=== PATIENT | male | born 1950 | race Caucasian/White ===

== ENCOUNTER 2022-03-25 22:38 | Inpatient (IN) | payer MEDICARE ==
[~2022-03-25] VITALS: Ht 172.7 cm; Wt 90.2 kg
[2022-03-25 23:14] LABS: Base Excess Venous -9.2 mmol/L; Bicarbonate Venous 17.6 mmol/L (24.0-30.0); PCO2 Venous 32.1 mmHg (38-42); pH Blood Venous 7.33 (7.34-7.37)
[2022-03-25 23:25] LABS: Hematocrit 34.9 % (37.0-53.0); Hemoglobin 12.6 g/dL (13.5-17.5); Mean Corpuscular HGB 34.4 pg (26.0-34.0); Mean Corpuscular HGB Conc 36.1 g/dL (31.5-36.5); Mean Corpuscular Volume 95 fL (80-100); Mean Platelet Volume 11.1 fL (9.1-12.4); Platelet Count 192 K/mm3 (150-400); RDW Coefficient Variation 13.2 % (11.7-14.2); RDW Standard Deviation 46.6 fL (35.1-46.3); Red Blood Cell Count 3.66 M/mm3 (4.30-5.90)
[2022-03-25 23:37] LABS: Albumin/Globulin Ratio 0.4 (0.8-1.8); Bilirubin, Total 0.8 mg/dL (0.1-1.0); Bun/Creatinine Ratio 19.9 (12.0-20.0); Calcium, Blood 8.7 mg/dL (8.5-10.1); Creatinine, Blood 1.66 mg/dL (0.60-1.20); Globulin, Blood 4.5 g/dL (2.2-4.0); Potassium, Blood 3.2 mmol/L (3.5-5.5); Total Protein, Blood 6.5 g/dL (6.4-8.2)
[2022-03-25 23:52] LABS: BAND PERCENT MAN 6 % (0-8); BASOPHILS PERCENT MAN 0 % (0-2); EOSINOPHILS PERCENT MAN 0 % (0-6); LYMPHOCYTES ABSOLUTE MAN 0.19 K/mm3 (0.84-5.20); LYMPHOCYTES PERCENT MAN 1 % (21-46); MONOCYTES ABSOLUTE MAN 0.57 K/mm3 (0.16-1.47); MONOCYTES PERCENT MAN 3 % (4-13); NEUTROPHILS ABSOLUTE MAN 18.52 K/mm3 (1.96-9.15); SEG NEUTROPHILS PERCENT MAN 90 % (41-73); TOTAL CELLS COUNTED 100
[2022-03-26 00:50] LABS: Influenza A, PCR NEGATIVE (NEGATIVE); Influenza B, PCR NEGATIVE (NEGATIVE); Resp Syncytial Virus, PCR NEGATIVE (NEGATIVE); SARS-Cov-2 (COVID-19) PCR, MMC NEGATIVE (NEGATIVE)
[2022-03-26 03:38] LABS: BASOPHILS ABSOLUTE AUTO 0.07 K/mm3 (0.00-0.23); BASOPHILS PERCENT AUTO 1 % (0-2); Hemoglobin 12.1 g/dL (13.5-17.5); LYMPHOCYTES ABSOLUTE AUTO 0.33 K/mm3 (0.84-5.20); LYMPHOCYTES PERCENT AUTO 2 % (21-46); MONOCYTES ABSOLUTE AUTO 0.33 K/mm3 (0.16-1.47); MONOCYTES PERCENT AUTO 2 % (4-13); Mean Corpuscular HGB 33.5 pg (26.0-34.0); Mean Corpuscular HGB Conc 35.6 g/dL (31.5-36.5); Mean Corpuscular Volume 94 fL (80-100); Mean Platelet Volume 10.7 fL (9.1-12.4); Platelet Count 176 K/mm3 (150-400); RDW Coefficient Variation 13.2 % (11.7-14.2); RDW Standard Deviation 45.5 fL (35.1-46.3); Red Blood Cell Count 3.61 M/mm3 (4.30-5.90)
[2022-03-26 03:44] LABS: EOSINOPHILS ABSOLUTE AUTO 0.01 K/mm3 (0.00-0.68); EOSINOPHILS PERCENT AUTO 0 % (0-6); IMMATURE GRAN ABSOLUTE AUTO 0.19 K/mm3 (0.00-0.10); IMMATURE GRAN PERCENT AUTO 1 % (0-1); NEUTROPHILS ABSOLUTE AUTO 13.77 K/mm3 (1.96-9.15); NEUTROPHILS PERCENT AUTO 94 % (41-73)
[2022-03-26 04:04] LABS: Albumin, Blood 1.8 g/dL (3.4-5.0); Albumin/Globulin Ratio 0.4 (0.8-1.8); Bilirubin, Total 0.6 mg/dL (0.1-1.0); Bun/Creatinine Ratio 23.8 (12.0-20.0); Calcium, Blood 7.9 mg/dL (8.5-10.1); Creatinine, Blood 1.72 mg/dL (0.60-1.20); Globulin, Blood 4.4 g/dL (2.2-4.0); Potassium, Blood 3.3 mmol/L (3.5-5.5); Total Protein, Blood 6.2 g/dL (6.4-8.2)
--- NOTE | 2022-03-26 06:15 | NUR ---
ARRIVAL TO ICU 7/SHIFT SUMMARY PT ARRIVED AT 0235 VIA ER VANDANA. PT TRANSFERED TO ICU BED, ALERT AND TALKING WITH STAFF. PT SWITCHED FROM BIPAP TO 5L NC. SPO2 GREATER THAN 92%. LUNGS WHEEZY, COARSE W/ CRACKLES IN BASES. AFIB RATE 150'S. CALL TO DR KENNEY REGARDING RATE. ORDERS RECEIVED. AFTER MEDS GIVEN, RATE STILL IN 150'S. CALL MADE AGAIN TO DR KENNEY. ORDER RECEIVED FOR CARDIZEM GTT. PT CURRENTLY ON BIPAP. LR AT 75MLS/HR. CARDIZEM AT 10MG/HR. SBP 110'S. URINE SAMPLE NEEDED, PT DENIES FEELING NEED TO VOID AT THIS TIME, BLADDER SCAN 277.
--- NOTE | 2022-03-26 07:00 | NUR ---
ASSUME CARE: I have assumed care of this patient.
--- NOTE | 2022-03-26 08:37 | NUR ---
PROVIDER UPDATE: Dr Mcclain updated on pt's sinus tachycardia.
--- NOTE | 2022-03-26 09:11 | NUR ---
UPDATE: Message left for provider regarding continued tachycardia.
[2022-03-26 10:19] LABS: Albumin, Blood 1.7 g/dL (3.4-5.0); Anion Gap 16 mmol/L (6-16); Blood Urea Nitrogen 51 mg/dL (8-24); Bun/Creatinine Ratio 27.4 (12.0-20.0); CO2, Blood 17 mmol/L (21-32); Chloride, Blood 92 mmol/L (98-108); Creatinine, Blood 1.86 mg/dL (0.60-1.20); Glomerular Filtration Rate 38 (60-); Glucose, Blood 105 mg/dL (70-99); Magnesium, Blood 3.4 mg/dL (1.6-2.4); Phosphorus, Blood 5.9 mg/dL (2.5-4.9); Potassium, Blood 3.7 mmol/L (3.5-5.5); Sodium, Blood 125 mmol/L (136-145)
--- NOTE | 2022-03-26 10:34 | NUR ---
PROVIDER UPDATE: Dr. Clark notified of troponin, sodium, continued tachycardia and now hypotension after metoprolol. Telephone order for ICU status and cardiology consult.
--- NOTE | 2022-03-26 10:37 | NUR ---
CARDIOLOGY CONSULT: Dr Henry called and notified of new consult. Telephone order for echo.
--- NOTE | 2022-03-26 11:19 | NUR ---
CHRIS AT BEDSIDE.
[2022-03-26 11:54] LABS: Source, Urine Clean Catch
[2022-03-26 12:09] LABS: Appearance, Urine Clear (Clear); Bilirubin, Urine Neg (Neg); Blood, Urine 5+ (Neg); Color, Urine Amber (P-Yellow); Glucose Qualitative, Urine Neg (Neg); Ketones, Urine 1+ (Neg); Leukocyte Esterase, Urine 1+ (Neg); Nitrite, Urine Neg (Neg); Protein, Urine 3+ (Neg); Urobilinogen, Urine NORM (Normal)
[2022-03-26 12:20] LABS: Granular Casts 0-2 /lpf (0); Red Blood Cells, Urine 0-2 /hpf (0-2); Squamous Epithelial Cells Not Seen /hpf (Few)
[2022-03-26 12:21] LABS: Bacteria Mod /hpf
[2022-03-26 12:35] LABS: International Normalized Ratio 1.08; Prothrombin Time Results 11.3 Sec (9.7-11.5)
--- NOTE | 2022-03-26 14:39 | NUR ---
PHONE CALL: Pt's boss, Claus, called per pt's request and notified that he is in the ICU.
--- NOTE | 2022-03-26 14:57 | NUR ---
UPDATE: Message left for Dr Henry regarding hypotension.
--- NOTE | 2022-03-26 15:10 | NUR ---
UPDATE: Dr. Henry updated regarding pt status. Dr. Larson updated on plan.
--- NOTE | 2022-03-26 16:00 | NUR ---
1529 - timout called; Carl, RT, RN x 2, and RT at bedside. 1531 - 2 mg versed pushed 1532 - synchronized cardioversion at 50 J with refractory aflutter in 180's 1535 - 150mg amiodarone pushed, 2mg versed pushed 1537 - 25 mcg fentanyl pushed 1539 - synchronized cardioversion at 200 J with successful conversion into sinus tachycardia
--- NOTE | 2022-03-26 16:43 | NUR ---
UPDATE: Dr Clark updated on pt status. Telephone order for 10mg lasix
--- NOTE | 2022-03-26 16:59 | NUR ---
UPDATE: Dr Mcclain called and notified of bloody BM with clots. She states she will call Cynthia.
[2022-03-26 17:41] LABS: Hematocrit 19.9 % (37.0-53.0); Hemoglobin 7.2 g/dL (13.5-17.5)
--- NOTE | 2022-03-26 18:20 | NUR ---
CC CONSULT: Dr Rivera called and notified of pt status. Telephone order for second unit of PRBC and levophed for MAP <64
--- NOTE | 2022-03-26 19:15 | NUR ---
ASSUMED CARE OF PT @1900. BEDSIDE REPORT. PT ON CPAP 10 AND 40%. A&O X4. FOLLOWS DIRECTIONS. REPOSITIONS SELF IN BED AND MOVING ALL EXTREMETIES INDEPENDENTLY. RR 33, HR 120'S, SBP 80-90'S, MAP 60'S. LEVOPHED INFUSING @2MG/MIN. AMIODARONE 1MG/HR. TKO 10MLS/HR. PICC LINE LEONARDO. 20GA IV R WRIST.
--- NOTE | 2022-03-26 19:30 | NUR ---
SHIFT SUMMARY: NEURO: Pt requiring more frequent orientation after cardioversion procedure. Pt states that he has not slept in five days and has been seeing visual hallucinations. CARDIAC: initially in 2:1 a flutter. Three boluses of 150mg amio given today. One 500ml bolus of NS given. Pt cardioverted successfully into sinus tachycardia in 110's. BP's still hypotensive. PICC started in LUE and Levophed started. RESPIRATORY: pt tolerated 6L NC for a short time today before requiring CPAP 10 at 40%. GI/: minimal UOP. Two large, maroon colored stools after cardioversion. Heparin discontinued and GI consulted. Two units of PRBCs ordered. SKIN: no new breakdown
--- NOTE | 2022-03-26 21:54 | NUR ---
UPDATE CALL TO DR CARSON REGARDING PT. PT TO GO TO CT FOR ANGIO. PT ON LEVOPHED AT 8 MCQ/MIN. FIRST UNIT BLOOD INFUSING. GARCIA CATH WITH LESS THAN 5 ML OUT. PT HAS HAD 4 DARK MAROON STOOLS OF THIS TIME. DR GAGE AND DR CARSON AWARE.
[2022-03-26 22:20] LABS: Base Excess Venous -9.8 mmol/L; Bicarbonate Venous 16.8 mmol/L (24.0-30.0); PCO2 Venous 27.2 mmHg (38-42); pH Blood Venous 7.37 (7.34-7.37)
--- NOTE | 2022-03-26 22:25 | NUR ---
PT TO CT. RT BEDSIDE.
--- NOTE | 2022-03-26 22:50 | NUR ---
PT RETURNED FROM CT
--- NOTE | 2022-03-26 22:58 | NUR ---
BACK FROM CT. UPDATE GIVEN TO DR MOY. CALL TO DR GAGE ABOUT CT COMPLETE, BUT NO REPORT YET. WILL CALL DR GAGE WHEN WE RECEIVE CT REPORT.
--- NOTE | 2022-03-26 23:24 | NUR ---
DR. MOY BEDSIDE TO ASSESS PT. CONTINUE W/PLAN OF CARE. ADD VASOPRESSIN DUE TO LEVO @12 AND MAP OF 66.
--- NOTE | 2022-03-27 01:01 | NUR ---
CALL TO MD CALL TO DR CARSON REGARDING NO URINE OUTPUT SINCE LASIX 80 MG GIVEN. BLADDER SCAN DONE AND WAS 44 ML ALSO REPORTED TO DR CARSON. RECIEVED ORDERS FOR LASIX 160 MG, NO FLUID ORDER RECIEVED. AM LABS ORDERED.
[2022-03-27 02:44] LABS: Source, Urine Foley catheter
[2022-03-27 02:44] LABS: BASOPHILS ABSOLUTE AUTO 0.04 K/mm3 (0.00-0.23); BASOPHILS PERCENT AUTO 0 % (0-2); Hematocrit 20.1 % (37.0-53.0); Hemoglobin 7.5 g/dL (13.5-17.5); LYMPHOCYTES ABSOLUTE AUTO 0.78 K/mm3 (0.84-5.20); LYMPHOCYTES PERCENT AUTO 3 % (21-46); MONOCYTES ABSOLUTE AUTO 0.69 K/mm3 (0.16-1.47); MONOCYTES PERCENT AUTO 3 % (4-13); Mean Corpuscular HGB 33.2 pg (26.0-34.0); Mean Corpuscular HGB Conc 37.3 g/dL (31.5-36.5); Mean Platelet Volume 11.2 fL (9.1-12.4); Platelet Count 179 K/mm3 (150-400); RDW Coefficient Variation 16.7 % (11.7-14.2); RDW Standard Deviation 54.4 fL (35.1-46.3); Red Blood Cell Count 2.26 M/mm3 (4.30-5.90); White Blood Cell Count 24.85 K/mm3 (4.00-11.30)
[2022-03-27 02:46] LABS: Bilirubin, Urine Neg (Neg); Blood, Urine 5+ (Neg); Glucose Qualitative, Urine 1+ (Neg); Ketones, Urine 1+ (Neg); Leukocyte Esterase, Urine 1+ (Neg); Nitrite, Urine Neg (Neg); Protein, Urine 3+ (Neg); Specific Gravity, Urine 1.015 (1.003-1.022); Urobilinogen, Urine NORM (Normal)
[2022-03-27 02:49] LABS: EOSINOPHILS ABSOLUTE AUTO 0.01 K/mm3 (0.00-0.68); EOSINOPHILS PERCENT AUTO 0 % (0-6); IMMATURE GRAN ABSOLUTE AUTO 0.99 K/mm3 (0.00-0.10); IMMATURE GRAN PERCENT AUTO 4 % (0-1); Mean Corpuscular Volume 89 fL (80-100); NEUTROPHILS ABSOLUTE AUTO 22.34 K/mm3 (1.96-9.15); NEUTROPHILS PERCENT AUTO 90 % (41-73)
[2022-03-27 03:00] LABS: International Normalized Ratio 1.19; Prothrombin Time Results 12.4 Sec (9.7-11.5)
[2022-03-27 03:02] LABS: Albumin, Blood 1.3 g/dL (3.4-5.0); Albumin/Globulin Ratio 0.4 (0.8-1.8); Bilirubin, Total 0.5 mg/dL (0.1-1.0); Bun/Creatinine Ratio 25.3 (12.0-20.0); Calcium, Blood 6.8 mg/dL (8.5-10.1); Creatinine, Blood 2.96 mg/dL (0.60-1.20); Magnesium, Blood 2.9 mg/dL (1.6-2.4); Phosphorus, Blood 6.2 mg/dL (2.5-4.9); Potassium, Blood 3.6 mmol/L (3.5-5.5); Total Protein, Blood 4.3 g/dL (6.4-8.2)
[2022-03-27 03:48] LABS: Appearance, Urine Hazy (Clear); Color, Urine Red (P-Yellow); Red Blood Cells, Urine TNTC /hpf (0-2)
[2022-03-27 03:49] LABS: Bacteria Mod /hpf; Squamous Epithelial Cells Mod /hpf (Few)
--- NOTE | 2022-03-27 05:46 | NUR ---
SUMMARY: NEURO/PSYCH/MOBILITY: PT HAS BEEN HAVING CONFUSION OVERNIGHT. VISUAL HALLUCINATIONS. PT IS REDIRECTABLE AND COOPERATIVE. ABLE TO MOVE ALL EXTREMETIES INDEPENDENTLY AND MAKE MINOR ADJUSTMENTS TO BODY POSITION. WEAKNESS EVEN BILATERALLY. PERRL. PT DENIES PAIN OR SOB. TMAX 101.3. TYLENOL GIVEN. RESP: LUNGS REMIAN COARSE THROUGHOUT W/DIM BASES. CPAP OF 10 AND 40%. RR 20-30'S, SPO2 >92%. PT HAS OCCASIONAL LOOSE/WET COUGH. PT TOLERATES O2 5L VIA NC FOR ORAL CARE. CARDIAC: CONTINUOUS CARDIAC MONITORING. LEVOPHED INFUSING, TITRATED DOWN TO 4MCG/MIN AT END OF SHIFT. AMIODARONE 1MG/MIN INFUSING. SR 80-90'S. SBP 90-120. MAP >65. PT DENIES CHEST PAIN. NO EDEMA. PULSES STRONG ON ALL EXTREMETIES. SCD'S IN PLACE. GI: PT HAS HAD MULTIPLE LARGE LOOSE MAROON BOWEL MOVEMENTS THROUGHOUT SHIFT. RECTAL TUBE INSERTED. PT DENIES ABDOMINAL PAIN AND NAUSEA. PT NPO. : TEMP GARCIA PRESENT AND DRAINING TO GRAVITY. PT HAS HAD LESS THAN 50MLS URINE OUTPUT THIS SHIFT. LASIX GIVEN THROUGHOUT SHIFT. SKIN: ASSESSMENT REMAINS UNCHANGED. IV ACCESS: PICC LEONARDO INFUSING. 20GA L WRIST. 20GA R WRIST INFUSING. 18GA RAC SALINE LOCK.
--- NOTE | 2022-03-27 08:10 | NUR ---
ASSUMED CARE REPORT FROM SERA/JESSE RN AT 0700. PT RESTING IN BED. CPAP 10/40% IN PLACE. PLACED ON NC AND TITRATED TO 2L, TOLERATING WELL. O2 SATS 99%. MOIST COUGH. LUNGS COARSE AND DIM THROUGHOUT. SR, RATE 80'S ON MONITOR. LEVO TITRATED OFF. WILL MONITOR FOR MAP>65. PT ALERT, ORIENT TO SELF ONLY. NEEDS FREQUENT REORIENTATION. IRRITABLE c HAVING TO STAY IN BED. FOLLOWS SIMPLE DIRECTIONS. ABD SOFT, NON TENDER. BT X 4. PT DENIES PAIN. RECTAL TUBE IN PLACE. LIQUID MAROON STOOL OUT. GARCIA PATENT, DRAINING TO GRAVITY. CLEAR YELLOW URINE OUT. PICC TO LUE, DISTAL IV REMOVED. WILL CONTINUE TO MONITOR.
[2022-03-27 08:28] LABS: Hematocrit 18.4 % (37.0-53.0); Hemoglobin 6.7 g/dL (13.5-17.5)
--- NOTE | 2022-03-27 09:05 | NUR ---
Echocardiogram completed.
[2022-03-27 11:40] LABS: Vancomycin, Random 19.9 ug/mL
[2022-03-27 13:59] LABS: Hematocrit 21.7 % (37.0-53.0); Hemoglobin 8.1 g/dL (13.5-17.5)
[2022-03-27 14:15] LABS: Albumin, Blood 1.6 g/dL (3.4-5.0); Anion Gap 13 mmol/L (6-16); Blood Urea Nitrogen 76 mg/dL (8-24); Bun/Creatinine Ratio 21.8 (12.0-20.0); CO2, Blood 17 mmol/L (21-32); Calcium, Blood 7.4 mg/dL (8.5-10.1); Chloride, Blood 97 mmol/L (98-108); Creatinine, Blood 3.48 mg/dL (0.60-1.20); Glomerular Filtration Rate 18 (60-); Glucose, Blood 111 mg/dL (70-99); Phosphorus, Blood 7.5 mg/dL (2.5-4.9); Sodium, Blood 127 mmol/L (136-145)
--- NOTE | 2022-03-27 17:31 | NUR ---
03/27/22 [address] NINO; SEE ANESTHESIA RECORDS.
--- NOTE | 2022-03-27 17:46 | NUR ---
Pt's daughter was not aware her dad was in the hospital until this afternoon. Once she was informed of the seriousness of his situtaion, she decided drive down to see him. Pt was cardioverted yesterday, and today remains hypotensive. Pt is a full code; have not had the opportunity discuss code status due to pt's extreme anxeity. Hopeful his daugher's presence will help calm him. Palliative to see him again tomorrow.
--- NOTE | 2022-03-27 17:48 | NUR ---
SHIFT SUMMARY PT NEURO STATUS IMPROVED THIS SHIFT. COOPERATIVE c CARE. ORIENTED TO SELF, PLACE, PRESIDENT. ABLE TO DISCUSS CARE PLAN. OCCASIONAL CONFUSION, REORIENTS EASILY. FOLLOWS DIRECTIONS. LUNGS COARSE, WORSE ON LEFT SIDE. ON RA, O2 SATS >96%. PRODUCTIVE COUGH, SPECIMEN SENT TO LAB. SR, RATE 80'S. BP STABLE. OFF LEVO SINCE THIS AM. ABD ROUND, SOFT, NON TENDER. RECTAL TUBE IN PLACE c JADA RED BLOOD c CLOTS OUT. GARCIA PATENT, 800 ML CLEAR YELLOW URINE OUT. EGD THIS SHIFT, BIOPSIES TAKEN, NO OTHER INTERVENTIONS. PLAN FOR COLONSCOPY TOMORROW. PER DR GAGE, IF PT CANNOT TOLERATE PREP, WILL NEED NGT. OK TO ADVANCE TO CLEAR LIQUIDS. WILL CONTINUE TO MONITOR UNTIL REPORT TO ONCOMING NURSE.
--- NOTE | 2022-03-27 19:15 | NUR ---
ASSUMED CARE OF PT @1900. BEDSIDE REPORT: PT IS A&O X4. PLEASANT AND ANSWERS QUESTIONS APPROPRIATELY. DAUGHTER MARGAUX AT BEDSIDE. 2L O2 VIA NC. RR 19, SPO2 >92%. PROTONIX INFUSING. AMIODARONE 0.5MG INFUSING. HR 70'S, SBP STABLE, MAP >65. PICC LEONARDO INFUSING. 18GA RAC PATENT W/SALINE LOCK. TEMP GARCIA PATENT AND DRAINING TO GRAVITY. RECTAL TUBE PATENT AND DRAINING TO GRAVITY.
[2022-03-28 04:07] LABS: BASOPHILS ABSOLUTE AUTO 0.03 K/mm3 (0.00-0.23); BASOPHILS PERCENT AUTO 0 % (0-2); EOSINOPHILS ABSOLUTE AUTO 0.01 K/mm3 (0.00-0.68); EOSINOPHILS PERCENT AUTO 0 % (0-6); Hematocrit 19.7 % (37.0-53.0); Hemoglobin 7.2 g/dL (13.5-17.5); IMMATURE GRAN ABSOLUTE AUTO 0.95 K/mm3 (0.00-0.10); IMMATURE GRAN PERCENT AUTO 5 % (0-1); LYMPHOCYTES ABSOLUTE AUTO 0.66 K/mm3 (0.84-5.20); LYMPHOCYTES PERCENT AUTO 3 % (21-46); MONOCYTES ABSOLUTE AUTO 0.63 K/mm3 (0.16-1.47); MONOCYTES PERCENT AUTO 3 % (4-13); Mean Corpuscular HGB 32.4 pg (26.0-34.0); Mean Corpuscular HGB Conc 36.5 g/dL (31.5-36.5); Mean Corpuscular Volume 89 fL (80-100); Mean Platelet Volume 10.6 fL (9.1-12.4); NEUTROPHILS ABSOLUTE AUTO 18.69 K/mm3 (1.96-9.15); NEUTROPHILS PERCENT AUTO 89 % (41-73); Platelet Count 167 K/mm3 (150-400); RDW Coefficient Variation 17.2 % (11.7-14.2); RDW Standard Deviation 56.2 fL (35.1-46.3); Red Blood Cell Count 2.22 M/mm3 (4.30-5.90); White Blood Cell Count 20.97 K/mm3 (4.00-11.30)
[2022-03-28 04:28] LABS: Alanine Aminotransfer (ALT/SGP 149 U/L (12-78); Albumin, Blood 1.6 g/dL (3.4-5.0); Albumin/Globulin Ratio 0.5 (0.8-1.8); Alk Phos 41 U/L (50-136); Anion Gap 14 mmol/L (6-16); Aspartate Aminotrans (AST/SGOT 322 U/L (12-37); Bilirubin, Direct 0.2 mg/dL (0.0-0.3); Bilirubin, Indirect 0.2 mg/dL (0.1-0.7); Bilirubin, Total 0.4 mg/dL (0.1-1.0); Blood Urea Nitrogen 92 mg/dL (8-24); Bun/Creatinine Ratio 24.7 (12.0-20.0); CO2, Blood 18 mmol/L (21-32); Calcium, Blood 7.1 mg/dL (8.5-10.1); Chloride, Blood 99 mmol/L (98-108); Creatinine, Blood 3.72 mg/dL (0.60-1.20); Globulin, Blood 3.3 g/dL (2.2-4.0); Glomerular Filtration Rate 17 (60-); Glucose, Blood 112 mg/dL (70-99); Phosphorus, Blood 7.8 mg/dL (2.5-4.9); Potassium, Blood 3.6 mmol/L (3.5-5.5); Sodium, Blood 131 mmol/L (136-145); Total Protein, Blood 4.9 g/dL (6.4-8.2); Vancomycin, Random 15.8 ug/mL
--- NOTE | 2022-03-28 06:01 | NUR ---
SUMMARY: NEURO/PSYCH/MOBILITY: PT SLEPT MOST OF THE NIGHT. PT LEAKING AROUND RECTAL TUBE TOWARDS END OF SHIFT AND WOKE UP VERY CONFUSED AND FRIGHTENED. PT SETTLED BUT WAS STILL CONFUSED ABOUT WHERE HE WAS AND WHY HE WAS IN THE HOSPITAL. PT STATING HE WAS GOING TO GET UP AND LEAVE. PT EVENTUALLY COOPERATED WITH NURSING CARE AND WAS ABLE TO GET BACK TO SLEEP. ABLE TO REPOSITION SELF AND MOVE ALL EXTREMETIES. PT DENIES PAIN. RESP: LUNGS REMAIN COARSE W/DIM BASES. PT TOLERATED 2L O2 VIA NC OVERNIGHT. RR 20'S, SPO2 >92%. OCCASIONAL MOIST, PRODUCTIVE COUGH. CARDIAC: CONTINUOUS CARDIAC MONITORING. SR HR 70'S. SBP STABLE. MAP >65. GI: PT CONTINUES TO HAVE LOOSE MAROON STOOLS OUT OF RECTAL TUBE. PT DENIES ABDOMINAL PAIN AND NAUSEA. ABLE TO DRINK WATER AND TAKE ORAL MEDICATIONS. : TEMP GARCIA IN PLACE AND DRAINING YELLOW URINE TO GRAVITY. 1900MLS OUTPUT THIS SHIFT. SKIN: ASSESSMENT REMAINS UNCHANGED. IV ACCESS: PICC LEONARDO INFUSING. 18GA RAC PATENT W/SALINE LOCK.
--- NOTE | 2022-03-28 08:00 | NUR ---
PT AWAKE AND ORIENTED TO SELF FOLLOWING SOME COMMANDS. PT REPORTS SEEING "FLIES ALL OVER THIS PLACE!" CIWA 19. ECG SHOWS SR. MAP >65. LUNGS DIMINISHED WITH SCATTERED WHEEZES THROUGH OUT. SATS>90% ON 2 LITERS NASAL CANULA. SOB WITH MINIMAL EXERTION. OCCASIONAL MOIST, NONPRODUCTIVE COUGH. ORAL MUCOSA DRY-ORAL CARE DONE. PT ATTEMPTING TO DRINK PREP-PT IS HIGH RISK FOR ASPIRATION DUE TO INCREASED WOB. DR. DALE AWARE. RECTAL TUBE WITH LARGE AMOUNT OF MAROON STOOL AND PT LEAKING LARGE AMOUNT OF MAROON/MELENA STOOL AROUND RECTAL TUBE. HARRIS AREA EXCORIATED. BED BATH GIVEN AND LINEN CHANGE COMPLETED. GARCIA TO BSD WITH MODERATE AMOUNT OF DARK, YELLOW URINE TO BSD. PLAN FOR COLONOSCOPY LATER TODAY IF PT ABLE TO TOLERATE PREP.
--- NOTE | 2022-03-28 10:00 | NUR ---
INCREASE WOB CONTINUES. PT NOT ABLE TO FOLLOW COMMANDS AT THIS TIME-DR. GAGE AWARE. DR. CARSON MADE AWARE WELL AND FULL UPDATE GIVEN.
--- NOTE | 2022-03-28 12:00 | NUR ---
PT MED WITH ATIVAN 2 MG IVP X 1. RIGHT NARE NUMBED WITH LIDOCAINE-RN ATTEMPTED TO PLACE NGT FOR BOWEL PREP ADMINISTRATION. PT EXTREMELY AGITATED AND RESTLESS. SOFT WRIST RESTRAINTS PLACED AND PT MEDICATED WITH ADDITIONAL 2 MG ATIVAN IV. NGT PLACED TO RIGHT NARE AND PLACEMENT CONFIRMED BY CXR-GOLYTELY @ 250 CC/HR VIA NGTF. RECTAL TUBE BAG CHANGED AND HARRIS CARE DONE. APROXIMATELY 600 CC OF MAROON STOOL TO RECTAL TUBE BAG AND SMALL AMOUNT OF LEAKAGE AROUND THE RECTAL TUBE WELL. LUNGS AUDIBLY WHEEZY AND PT LABORING TO BREATH. PT USING ACCESSORY MUSCLES. SATS>90% ON [address] CARSON AWARE OF CONTINUES RESPIRATORY DISTRESS.
--- NOTE | 2022-03-28 14:00 | NUR ---
1000 CC OF GOLYTELY GIVEN. INCREASED RATE PLAN TO SCOPE @ 1700 AND STOOL STILL DARK, MAROON. HGG 6.9-DR. HEAD AWARE. 1 UNIT PRBC'S ORDERED.LUNGS REMAIN COARSE AND WHEEZY-DIMINISHED T/O LEFT. PT USING ACCESSORY MUSCLES TO BREATH. SATS>90% ON 2 LITERS NASAL CANULA, BUT PT LABORING AT REST. ORDER GIVEN FOR IV STEROIDS-SEE EMAR.
[2022-03-28 14:26] LABS: Hematocrit 19.9 % (37.0-53.0); Hemoglobin 6.9 g/dL (13.5-17.5)
--- NOTE | 2022-03-28 16:30 | NUR ---
PT OPENS EYES AND VERY AGITATED, PULLING ON RESTRAINTS-REACHING FOR LINES AND TUBES. PT PALE AND DIAPHORETIC. INCREASED WOB CONTINUES. PT AUDIBLY WHEEZY AND USING ACCESSORY MUSCLES TO BREATHE. DR. CARSON SUMMONED TO BEDSIDE. ORDERS GIVEN FOR CPAP 10-FIO2 30%-1 HOUR LONG NEB, MAGNESIUM 2 GM IVPB, AND PRECEDEX DRIP INITIATED @ 0.4 MCG/KG/MIN. GOLYTELY COMPLETE. NG AND RECTAL TUBE TUBE DISCONTINUED. 1 UNIT PRBC'S INFUSING. PT STOOL IS CLEAR/MAROON COLORED.DR. GAGE UPDATED.
--- NOTE | 2022-03-28 17:26 | NUR ---
DR. RICO HERE TO SEE PT. FULL UPDATE GIVEN. DR. RICO AND DR. CARSON HAVE DISCUSSED PLAN OF CARE. PLAN TO INTUBATE PT PRIOR TO COLONOSCOPY.
--- NOTE | 2022-03-28 18:18 | NUR ---
RSI: TV LESS THAN 400-DR. CARSON AT BEDSIDE. PREP FOR RSI@1755. PT MED WITH PROPOFOL 80MG IVP @1755. 1756-MED WITH ROCURONIUM 50 MG IVP X 1. 8.0 ETT PLACED AND CONFIRMED BY CXR. OGT PLACED AND PLACEMENT CONFIRMED BY CXR. ETT 25 @ LIP. VENT: AC/VC+ 14, TV 560, PEEP 5, FIO2 40%. PROPOFOL DRIP INITIATED @ 20 MCG/KG/MIN. HR 80-90'S SR WITH AMIODARONE @ 0.5 MG/HR. MAP >65 THROUGH OUT PROCEDURE.
--- NOTE | 2022-03-28 18:58 | NUR ---
IN ICU TO DO CASE PATIENT INTUBATED ANNESTHESIA CASE SEE DR ALMANZA ANNESTHESIA RECORD
--- NOTE | 2022-03-28 19:12 | NUR ---
03/28/221911 Severino Woodward See Anesthesia record DR RICO
--- NOTE | 2022-03-28 19:15 | NUR ---
ASSUMED CARE OF PT @1900. DR GAGE AND COLONOSCOPY TEAM BEDSIDE. PT INTUBATED AND SEDATED. PROPOFOL 35MCG/KG/MIN. AC VC 14/560/5/40%. PICC LEONARDO INFUSING. 18GA RAC INFUSING. GARCIA CATH PATENT AND DRAINING TO GRAVITY. BSWR IN PLACE. HR 80'S, RR <20, SPO2 >92%, MAP >65. AMIODARONE 0.5MG/MIN.
[2022-03-29 03:42] LABS: Hemoglobin 7.3 g/dL (13.5-17.5); Mean Corpuscular HGB Conc 36.5 g/dL (31.5-36.5); Mean Corpuscular Volume 88 fL (80-100); Mean Platelet Volume 10.7 fL (9.1-12.4); Platelet Count 181 K/mm3 (150-400); RDW Coefficient Variation 17.3 % (11.7-14.2); RDW Standard Deviation 55.7 fL (35.1-46.3); Red Blood Cell Count 2.28 M/mm3 (4.30-5.90); White Blood Cell Count 12.09 K/mm3 (4.00-11.30)
[2022-03-29 03:59] LABS: Albumin, Blood 1.5 g/dL (3.4-5.0); Anion Gap 12 mmol/L (6-16); Blood Urea Nitrogen 79 mg/dL (8-24); Bun/Creatinine Ratio 27.8 (12.0-20.0); CO2, Blood 22 mmol/L (21-32); Calcium, Blood 7.3 mg/dL (8.5-10.1); Chloride, Blood 104 mmol/L (98-108); Creatinine, Blood 2.84 mg/dL (0.60-1.20); Glomerular Filtration Rate 23 (60-); Glucose, Blood 155 mg/dL (70-99); Potassium, Blood 3.5 mmol/L (3.5-5.5); Sodium, Blood 138 mmol/L (136-145); Vancomycin, Random 18.5 ug/mL
[2022-03-29 04:53] LABS: BAND PERCENT MAN 3 % (0-8); BASOPHILS PERCENT MAN 0 % (0-2); EOSINOPHILS PERCENT MAN 0 % (0-6); LYMPHOCYTES ABSOLUTE MAN 0.48 K/mm3 (0.84-5.20); LYMPHOCYTES PERCENT MAN 4 % (21-46); METAMYELOCYTE ABSOLUTE MAN 0.24 K/mm3 (0.00-0.00); METAMYELOCYTE PERCENT MAN 2 % (0-0); MONOCYTES ABSOLUTE MAN 0.12 K/mm3 (0.16-1.47); MONOCYTES PERCENT MAN 1 % (4-13); MYELOCYTE ABSOLUTE MAN 0.24 K/mm3 (0.00-0.00); MYELOCYTE PERCENT MAN 2 % (0-0); SEG NEUTROPHILS PERCENT MAN 88 % (41-73); TOTAL CELLS COUNTED 100
--- NOTE | 2022-03-29 06:12 | NUR ---
SUMMARY: NO ACUTE EVENTS THROUGHOUT SHIFT NEURO/PSYCH/MOBILITY: PT SEDATED AND INTUBATED. PROPOFOL TIRATED DOWN TO 15MCG/KG/MIN. PRECEDEX TITRATED UP TO 0.7MCG/KG/HR. PT IS CALM UNLESS REPOSITIONED. PT WILL OPEN EYES TO VERBAL STIMULI. NODS AND SHAKES HEAD IN RESPONSE TO STATEMENTS AND QUESTIONS. PT IS IN BSWR BUT CAN MOVE ALL EXTREMETIES. PERRL. RESP: AC VC 14/560/5/40%. LUNGS REMAIN COARSE W/OCCASIONAL WHEEZING. MODERATE AMOUNTS OF THICK WHITE SECRETIONS SUCTIONED FROM ETT TUBE THROUGHOUT SHIFT. PT TOLERATING VENT W/OCCASIONAL COUGHING. CARDIAC: CONTINUOUS CARDIAC MONITORING. AMIODARONE 0.5MG/MIN. SR HR 60-70'S. SBP STABLE. MAP >65. NO EDEMA NOTED. GI: NO BM THIS SHIFT. OGT LIS. SMALL AMOUNTS OF CLEAR, BLOOD TINGED LIQUID IN TUBE. : GARCIA CATH IN PLACE AND DRAINING YELLOW URINE TO GRAVITY. 1700MLS OUTPUT THIS SHIFT. SKIN: ASSESSMENT REMAINS UNCHANGED. PICC IN LEONARDO INFUSING.
--- NOTE | 2022-03-29 08:00 | NUR ---
PT OPENED EYES TO VERBAL STIMULI AND BECAME VERY RESTLESS AND AGITATED. PT PULLING ON RESTRAINTS AND REACHING FOR ETT. PT NOT FOLLOWING COMMANDS. PRECEDEX DRIP TITRATED UP TO 1.4 MCG/KG/MIN. PROPOFOL DRIP @ 15 MCG/KG/MIN. DR. DALE AND DR. WOLFE UPDATED-[facility] PROTOCOL REQUESTED. ECG SHOWS SR-12 LEAD ECG DONE. 1ST DOSE AMIODARONE GIVEN VIA OGT AND AMIODARONE DRIP DISCONTINUED. BP STABLE. TRACE GENERALIZED EDEMA NOTED. LUNGS DIMINISHED L>R. ETT 8.0/25 @ LIP. VENT: AC/VC+ 14, TV 560, PEEP 5, FIO2 40%-SATS>90%. ETT SUCTION PRODUCTIVE OF A LARGE AMOUNT OF THICK, YELLOW TINGED SPUTUM-SPECIMEN SENT. NO ACTIVE GIB. NPO-NO BM THIS AM. GARCIA TO BSD WITH ADEQUATE AMOUNT OF DARK, YELLOW URINE TO UROMETER. PT DAUGHTER MARGAUX HAMPTON FOR VISIT-UPDATE GIVEN.
--- NOTE | 2022-03-29 09:15 | NUR ---
DR. PERERA IN TO SEE PT-UPDATE GIVEN.
--- NOTE | 2022-03-29 09:47 | NUR ---
DR. CARSON AND DR. WOLFE IN TO SEE PT-UPDATE GIVENL. DR. CARSON UPDATED PT DAUGHTER MARGAUX TO PLAN OF CARE.
--- NOTE | 2022-03-29 13:57 | NUR ---
VHP INITIATED @ 50 CC/HR WITH H20 FLUSH 30 CC EVERY 4 HOURS.
--- NOTE | 2022-03-29 16:00 | NUR ---
PROPOFOL DRIP OFF BRIEFLY. PT BECAME EXTREMELY AGITATED AND RESTLESS-PT REACHING FOR ETT AND THRASHING IN THE BED. PT MED WITH ATIVAN 1 MG IVP AND PROPOFOL DRIP TITRATED UP TO 50 MCG/KG/MIN. PRECEDEX DRIP CONTINUES @ 1.4 MCG/KG/MIN. PT DAUGHTER AT THE BEDSIDE DURING THIS EPISODE AND SHE BECAME TEARFUL. PT DAUGHTER EDUCATION ABOUT ETOH WITHDRAWL/SEDATION MEDICATIONS. RN ABLE TO CONSOLE HER. TEMP 99.7. ECG CONTINUES SR WITH RATE 70-80'S. BP TRENDING 150-160'S/ 80'S. LUNGS DIMINISHED TO L>R WITH SCATTERED WHEEZES T/O THE LEFT. SATS>90% ON FIO2 30%. ETT SUCTION PRODUCTIVE OF MODERATE AMOUNT OF THICK, YELLOW SECRETIONS.PT TOLERATING OGTF WELL. STILL NO BM OR GIB NOTED. DR. CARSON UPDATED-NO NEW ORDERS AT THIS TIME.
[2022-03-30 03:58] LABS: Hematocrit 21.2 % (37.0-53.0); Hemoglobin 7.7 g/dL (13.5-17.5); Mean Corpuscular HGB 32.8 pg (26.0-34.0); Mean Corpuscular HGB Conc 36.3 g/dL (31.5-36.5); Mean Corpuscular Volume 90 fL (80-100); Mean Platelet Volume 10.6 fL (9.1-12.4); Platelet Count 204 K/mm3 (150-400); RDW Coefficient Variation 17.3 % (11.7-14.2); RDW Standard Deviation 56.9 fL (35.1-46.3); Red Blood Cell Count 2.35 M/mm3 (4.30-5.90); White Blood Cell Count 10.35 K/mm3 (4.00-11.30)
[2022-03-30 04:18] LABS: Magnesium, Blood 2.7 mg/dL (1.6-2.4)
[2022-03-30 04:45] LABS: Anion Gap 9 mmol/L (6-16); Blood Urea Nitrogen 54 mg/dL (8-24); Bun/Creatinine Ratio 30.3 (12.0-20.0); CO2, Blood 20 mmol/L (21-32); Calcium, Blood 6.4 mg/dL (8.5-10.1); Chloride, Blood 104 mmol/L (98-108); Creatinine, Blood 1.78 mg/dL (0.60-1.20); Glomerular Filtration Rate 41 (60-); Glucose, Blood 147 mg/dL (70-99); Potassium, Blood 3.3 mmol/L (3.5-5.5); Sodium, Blood 133 mmol/L (136-145); Vancomycin, Random 15.7 ug/mL
[2022-03-30 04:59] LABS: Phosphorus, Blood 2.4 mg/dL (2.5-4.9)
[2022-03-30 05:34] LABS: BAND PERCENT MAN 1 % (0-8); BASOPHILS PERCENT MAN 0 % (0-2); EOSINOPHILS PERCENT MAN 0 % (0-6); LYMPHOCYTES ABSOLUTE MAN 1.24 K/mm3 (0.84-5.20); LYMPHOCYTES PERCENT MAN 12 % (21-46); METAMYELOCYTE PERCENT MAN 2 % (0-0); MONOCYTES ABSOLUTE MAN 0.41 K/mm3 (0.16-1.47); MONOCYTES PERCENT MAN 4 % (4-13); MYELOCYTE PERCENT MAN 1 % (0-0); NEUTROPHILS ABSOLUTE MAN 8.38 K/mm3 (1.96-9.15); SEG NEUTROPHILS PERCENT MAN 80 % (41-73); TOTAL CELLS COUNTED 100
--- NOTE | 2022-03-30 06:22 | NUR ---
SHIFT SUMMARY: THIS AUTHOR ASSUMED PATIENT CARES FROM . GENERALLY, PATIENT HAD A GOOD NIGHT. HE TOLERATED THE VENTILATOR WELL WITH ADEQUATE SEDATION. HE DOES RESPOND TO PAIN STIMULUS BUT IS NOT FOLLOWING COMMANDS. RASS -2 TO -3. WHEN MORE AWAKE, HE DOES IMMEDIATELY REACH FOR ETT. DOES NOT LIKE PO CARES OR SUCTIONING. AUTHOR HAD PHARMACY SWITCH PO MUCINEX TO LIQUID FORM, NOW ABLE TO ADMIN DOWN OG. SECRETION BURDEN MODERATE INLINE; PO SCANT. MILDLY FEBRILE IN THE 99F RANGE. NO ANTYPYRETICS GIVEN. VENT SETTINGS REMAIN AC/VC, PEEP 5, FIO2 30%. LUNGS CLEAR UPPER; DIMINISHED LOWER. MORE DIMINISHED ON L. HAS BEEN SR WITH SLIGHT HTN. NO NEW SKIN CONCERNS; BATH DONE. NO BM OVERNIGHT, GOOD UOP.
--- NOTE | 2022-03-30 09:45 | NUR ---
ASSUMED CARE OF PT FROM KARIN STOKES AT 0700. PT ON VENTILATOR AC /10/16, TOLERATING WELL, COUGHS OCC. SKIN DAMP, TF INFUSING, TEMP GARCIA TO GRAVITY DRAINAGE, PRECEDEX 1.4MCG/KG, PROPOFOL @ 50MCG/KG, ANTIBIOTICS AND TKO'S. ORAL CARE COMPLETED, HE DID NOT LIKE. CATH CARE COMPLETED. DAUGHTER IN ROOM. PLAN FOR EXTUBATION.
--- NOTE | 2022-03-30 10:02 | NUR ---
PT EXTUBATED AT 0958, PLACED ON 4L/NC. PT NODDING AND COOPERATIVE. DENIES KNOWING WHERE HE IS. PROPOFOL TURNED OFF, PRECEDEX DOWN TO 0.7MCG/KG.
--- NOTE | 2022-03-30 11:04 | NUR ---
JAKE IS DOING WELL POST EXTUBATION, HE IS STAYING IN THE MID TO HI 90S ON HIS OXYGEN SATURATION, HE IS BEING COOPERATIVE AND IS ANSWERING QUESTIONS WITHOUT INCIDENT. HE IS TOLERATING ICE CHIPS, SLOWLY WITHOUT EVIDENCE OF ASPIRATION. DAUGHTER REMAINS AT BEDSIDE. HE NEEDS REORIENTATION AND REASSURANCE.
--- NOTE | 2022-03-30 12:11 | NUR ---
JAKE IS REQUESTING A CONVERSATION WITH THE DOCTOR, HE WOULD LIKE TO GO HOME. HE WAS INFORMED THAT THE DOCTOR WAS OFF THE UNIT AT THIS TIME AND HE WOULD BE IN TO VISIT WITH HIM LATER. HE WAS ACCEPTING OF THAT. HE WAS ABLE TO TAKE THE ROBITUSSIN COUGH LIQUID BY HIMSELF. HE IS SHAKEY, HE DOES STATE HE FEELS A LITTLE BIT "OFF". IT WAS EXPLAINED TO HIM THAT IT IS EXPECTED TO FEEL A BIT OF EXHAUSTION AFTER HAVING BEEN THROUGH WHAT HE HAS THIS WEEK. DAUGHTER OFFERS REASSURANCE.
--- NOTE | 2022-03-30 14:30 | NUR ---
PT HELPED TO CHAIR BY OCCUPATIONAL THERAPY, HE FELT HE NEEDED TO HAVE A BM. HE WAS ABLE TO TRANSFER TO THE BSC WITH WALKER AND MINIMAL ASSISTANCE. HE HAD A LARGE LOOSE BM THAT WAS BROWN. HE WAS ABLE TO TRANSFER BACK TO THE CHAIR, HE WAS WEAK BUT ABLE TO TRANSFER.
--- NOTE | 2022-03-30 14:54 | NUR ---
AFTER JAKE'S SPEECH EVAL WITH OLIVER, HE WAS READY TO RETURN TO BED, HE WAS ABLE TO TRANSFER BACK TO THE BED, BUT HE WAS NOTICEABLY EXHAUSTED WELL VERBALLY SAYING SO. DAUGHTER RETURNED TO CHECK IN AND PASTOR GUDINO WENT IN TO SEE HIM, SHE HAS STEPPED OUT TO ALLOW THEM SOME PRIVACY.
--- NOTE | 2022-03-30 15:00 | NUR ---
"Spiritual Care | Nurse Request Pt. is somnolent but responds when I enter the room. Pt. is pleasant but was disappointed when he found out I was a special skills officer and not the doctor. Pts. daughter is present, and soon excuses herself. Listen empthetically with a calming presence. Explore areas of zelda and belief. Prayed with Pt. Pt. displays evidence of awareness and engagement. Pt. verbalizes gratitude for the spiritual care visit."
--- NOTE | 2022-03-30 17:42 | NUR ---
JAKE HAS HAD AN EVENTFUL DAY TODAY. HE WAS EXTUBATED THIS AM, HE WAS ABLE TO GET TO THE CHAIR, USE THE BEDSIDE COMMODE AND RETURN TO THE CHAIR. HE WAS ABLE TO RETURN TO BED BEFORE BECOMING COMPLETELY EXHAUSTED. HE WAS ABLE TO PASS HIS SWALLOW EVALUATION AND BE PUT ON A MECHANICAL SOFT DIET. HE IS ON 4L/NC, WHEN HE WILL KEEP IT IN HIS NOSE. HE IS COUGHING WITH GOOD FORCE AND ABLE TO RETURN CLEAR PHLEGM. HE IS BECOMING MORE CLEAR THIS AFTERNOON AND UNDERSTANDING WHERE HE IS. HE IS NO LONGER ON ANY SEDATIVES, HE IS ON PROTONIX IV @ 10ML/HR AND 1/2NS @ 75ML/HR. HE IS FEEDING HIMSELF DINNER AND TAKING IN WATER WITHOUT INCIDENT. HIS SATS ARE HIGH 90'S, BP 140/70S, HEART RATE 80'S, ASKING APPRO- PRIATE QUESTIONS AND LAUGHING AND SAYING THANK YOU. VISITED WITH PT. PROTONIX IV ELTON SMITH.
[2022-03-31 04:41] LABS: Hematocrit 21.9 % (37.0-53.0); Hemoglobin 7.5 g/dL (13.5-17.5); Mean Corpuscular HGB 31.5 pg (26.0-34.0); Mean Corpuscular HGB Conc 34.2 g/dL (31.5-36.5); Mean Corpuscular Volume 92 fL (80-100); Mean Platelet Volume 10.5 fL (9.1-12.4); Platelet Count 250 K/mm3 (150-400); RDW Standard Deviation 56.8 fL (35.1-46.3); Red Blood Cell Count 2.38 M/mm3 (4.30-5.90); White Blood Cell Count 14.18 K/mm3 (4.00-11.30)
[2022-03-31 05:05] LABS: Alanine Aminotransfer (ALT/SGP 108 U/L (12-78); Albumin, Blood 1.6 g/dL (3.4-5.0); Albumin/Globulin Ratio 0.6 (0.8-1.8); Alk Phos 41 U/L (50-136); Anion Gap 6 mmol/L (6-16); Aspartate Aminotrans (AST/SGOT 94 U/L (12-37); Bilirubin, Total 0.6 mg/dL (0.1-1.0); Blood Urea Nitrogen 52 mg/dL (8-24); Bun/Creatinine Ratio 38.5 (12.0-20.0); CO2, Blood 25 mmol/L (21-32); Calcium, Blood 7.8 mg/dL (8.5-10.1); Chloride, Blood 109 mmol/L (98-108); Creatinine, Blood 1.35 mg/dL (0.60-1.20); Globulin, Blood 2.9 g/dL (2.2-4.0); Glomerular Filtration Rate 56 (60-); Glucose, Blood 86 mg/dL (70-99); Phosphorus, Blood 2.8 mg/dL (2.5-4.9); Potassium, Blood 3.8 mmol/L (3.5-5.5); Sodium, Blood 140 mmol/L (136-145); Total Protein, Blood 4.5 g/dL (6.4-8.2); Vancomycin, Random 15.1 ug/mL
--- NOTE | 2022-03-31 05:56 | NUR ---
END OF SHIFT PT HAS HAD NO OVERNIGHT EVENTS. PT WAS EXTUBATED TO NC PT IS CURRENTLY ON RA. PT IS SLIGHTLY CONFUSSED AND HAVING MILD WITHDRAW SYMTOMS SWEATING AND CONFUSSION. ATIVAN GIVEN x1. VITYAL SIGNS ARE STABLE PT SHOULD BE ABLE TO BE DOWNGRADED TODAY, WILL CONTINUE TO MONITOR AND REPORT OFF TO ONCOMING RN
[2022-03-31 06:14] LABS: BAND PERCENT MAN 1 % (0-8); BASOPHILS PERCENT MAN 0 % (0-2); EOSINOPHILS PERCENT MAN 0 % (0-6); LYMPHOCYTES ABSOLUTE MAN 0.42 K/mm3 (0.84-5.20); LYMPHOCYTES PERCENT MAN 3 % (21-46); METAMYELOCYTE ABSOLUTE MAN 0.14 K/mm3 (0.00-0.00); METAMYELOCYTE PERCENT MAN 1 % (0-0); MONOCYTES ABSOLUTE MAN 0.14 K/mm3 (0.16-1.47); MONOCYTES PERCENT MAN 1 % (4-13); MYELOCYTE ABSOLUTE MAN 0.56 K/mm3 (0.00-0.00); MYELOCYTE PERCENT MAN 4 % (0-0); SEG NEUTROPHILS PERCENT MAN 90 % (41-73); TOTAL CELLS COUNTED 100
--- NOTE | 2022-03-31 10:45 | NUR ---
SHIFT ASSESSMENT ASSUMED CARE OF PT @ 0700. PT ALERT AND ORIENTED TO PERSON, PLACE, AND YEAR. FOLLOWING COMMANDS, STATES HIS MAIN COMPLAINT IS LACK OF SLEEP. PER REPORT PT DID NOT SLEEP AT ALL LAST NIGHT, PT ALSO CONFIRMED THIS. GARCIA CATH DRAINING TO GRAVITY. PT USING BEDPAN FOR BM, LOOSE STOOL THIS AM. PHYSICAL THERAPY WORKED WITH PT THIS MORNING, PT REFUSED TO WALK HE IS EXHAUSTED BUT TOLERATED EXERCISES WELL. FAMILY IN TO VISIT THIS AM, UPDATED ON PLAN OF CARE. NO OTHER COMPLAINTS OR CONCERNS FROM PT. PT NOW PCU, WILL MONITOR CLOSELY.
[2022-03-31] MEDS ORDERED: FINA5 PO (14:11)
[2022-03-31] MEDS ORDERED: LISI20 PO (14:12)
[2022-03-31] MEDS ORDERED: POLY500 PO (14:13)
[2022-03-31] MEDS ORDERED: BUPROPION HCL100 MG PO (14:14)
[2022-03-31] MEDS ORDERED: Hytrin2 MG PO (14:14)
--- NOTE | 2022-03-31 18:14 | NUR ---
TRANSFER PT TX TO PCU 7. REPORT GIVEN TO KARIN STUART. NO ACUTE CHANGES IN PT CONDITION. REMAINS ALERT AND ORIENTED, FOLLOWING COMMANDS. TOLERATING FOOD AND DRINK. PTS MAIN COMPLAINT IS LACK OF SLEEP.
--- NOTE | 2022-03-31 23:20 | NUR ---
ASSUMED CARE AT 1900 PT LAYING IN BED AT SHIFT CHANGE. HE IS A/O X4 AND ABLE TO MAKE HIS NEEDS KNOWN; HE STATES THAT HE IS VERY TIRED, MILDLY WEAK AND LETHARGIC DUE TO THIS. AFEBRILE. SPO2 >95% ON RA. NSR NOTED WITH RATE 70'S, BP STABLE. GARCIA IN PLACE AND DRAINING TO GRAVITY. 1/2 NS INFUSING AT 50ML/HR. SEE SHIFT ASSESSMENT FOR FULL ASSESSMENT.
[2022-04-01 04:26] LABS: Hematocrit 25.1 % (37.0-53.0); Hemoglobin 8.4 g/dL (13.5-17.5); Mean Corpuscular HGB 30.8 pg (26.0-34.0); Mean Corpuscular HGB Conc 33.5 g/dL (31.5-36.5); Mean Corpuscular Volume 92 fL (80-100); Mean Platelet Volume 10.3 fL (9.1-12.4); Platelet Count 251 K/mm3 (150-400); RDW Coefficient Variation 16.3 % (11.7-14.2); RDW Standard Deviation 55.1 fL (35.1-46.3); Red Blood Cell Count 2.73 M/mm3 (4.30-5.90); White Blood Cell Count 12.21 K/mm3 (4.00-11.30)
[2022-04-01 05:20] LABS: BAND PERCENT MAN 3 % (0-8); BASOPHILS PERCENT MAN 0 % (0-2); EOSINOPHILS PERCENT MAN 0 % (0-6); LYMPHOCYTES ABSOLUTE MAN 1.34 K/mm3 (0.84-5.20); LYMPHOCYTES PERCENT MAN 11 % (21-46); METAMYELOCYTE ABSOLUTE MAN 0.24 K/mm3 (0.00-0.00); METAMYELOCYTE PERCENT MAN 2 % (0-0); MONOCYTES ABSOLUTE MAN 0.12 K/mm3 (0.16-1.47); MONOCYTES PERCENT MAN 1 % (4-13); MYELOCYTE ABSOLUTE MAN 1.22 K/mm3 (0.00-0.00); MYELOCYTE PERCENT MAN 10 % (0-0); NEUTROPHILS ABSOLUTE MAN 9.27 K/mm3 (1.96-9.15); SEG NEUTROPHILS PERCENT MAN 73 % (41-73); TOTAL CELLS COUNTED 100
--- NOTE | 2022-04-01 05:38 | NUR ---
END OF SHIFT SUMMARY NO ACUTE EVENTS OVERNIGHT. PT HAD A VERY CHALLENGING TIME SLEEPING AND ONLY SLEPT FOR A FEW HOURS. HE IS A/O X4 AND ABLE TO MAKE HIS NEEDS KNOWN; ATIVAN GIVEN ONCE FOR AGITATION REGARDING NOT BEING ABLE TO SLEEP; HELPFUL. SPO2 >95% ON RA. AFEBRILE. HR 70'S. SBP 130-150'S. GARCIA IN PLACE WITH 1400ML OUTPUT. PICC LINE TO LEONARDO DRESSING C/D/I. 1/2NS INFUSING AT 50ML/HR. WILL REPORT TO AM RN WHEN AVAILABLE.
[2022-04-01 05:44] LABS: Percent Saturation 23.5 % (20.0-50.0)
[2022-04-01 05:46] LABS: Albumin, Blood 1.7 g/dL (3.4-5.0); Albumin/Globulin Ratio 0.5 (0.8-1.8); Bilirubin, Total 0.5 mg/dL (0.1-1.0); Bun/Creatinine Ratio 33.6 (12.0-20.0); Calcium, Blood 7.7 mg/dL (8.5-10.1); Creatinine, Blood 1.07 mg/dL (0.60-1.20); Globulin, Blood 3.1 g/dL (2.2-4.0); Phosphorus, Blood 2.5 mg/dL (2.5-4.9); Potassium, Blood 3.7 mmol/L (3.5-5.5); Total Protein, Blood 4.8 g/dL (6.4-8.2)
--- NOTE | 2022-04-01 17:25 | NUR ---
SHIFT SUMMARY PT IS A&OX4, SBA W/ FWW, USES THE URINAL AT BEDSIDE, AND GETS UP TO THE BSC FOR BM'S. HIS GARCIA WAS D/C'D TODAY AND HE HAS SOME CLEAR HEMATURIA. WHEN HE HAS COUGHING FITS HE HAS INC BOWEL MOVEMENTS. HE HAS BEEN ON RA ALL SHIFT AND SP02 >93%. HE HAS BEEN SR 80'S-90S ON TELE, AND HAS HAD SOME HYPERTENTION. HE DENIES SOB, ANGINA, PAIN, AND N/V. DR. FARLEY ORDER PT/OT AND HAS CHANGED HIM TO MEDICAL STATUS. PT'S DAUGHTER IS IN TOWN FOR ONE MORE WEEK. SHE WOULD LIKE HH SET UP FOR HE PT, AND SHE WOULD LIKE HOME EQUIMENT OF A FWW AND SHOWER CHAIR. PT STATES HE IS READY TO GO HOME AND HAS BEEN COOPERATIVE WITH ROM, GETTING UP TO THE CHAIR, AND FOLLOWING DIRECTIONS. PT STATES HE FEELS VERY TIRED AND FEELS LIKE HE HAS NOT GOTTEN VERY MUCH SLEEP. HE HAS BEEN SLEEPING AT LEAST HALF OF THE SHIFT. BED IS IN LOW, CALL LIGHT IS IN REACH, AND DOOR IS OPEN. WILL CONTINUE TO MONITOR UNTIL SHIFT REPORT IS GIVEN TO THE ONCOMING SHIFT RN. SEE NOTES FOR ANY UPDATES.
--- NOTE | 2022-04-02 04:52 | NUR ---
SHIFT SUMMARY PT IS A/Ox4 AND IS COOPERATIVE WITH STAFF. MAINTAINS SPO2 >93% ON RA WITH MINIMAL SOB NOTED WHEN PT STAND TO VOID/AMBULATE. GARCIA CATH WAS DC'd 04/01 ON DAY SHIFT WITH SOME HEMATURIA NOTED AT THE START OF THE SHIFT, BUT HAS SINCE RESOLVED. NO BM THIS SHIFT, DAY SHIFT REPORTS INCONTINENCE WHEN PT HAS COUGHING FITS. BP AND HR HAVE BEEN STABLE T/O THE SHIFT WITH NO ACUTE CHANGES NOTED. SCD'S IN PLACE, PT CALLS APPROPRIATELY. FRANCIEN, ANNAS T/O THE SHIFT
[2022-04-02 06:32] LABS: Hematocrit 24.4 % (37.0-53.0); Hemoglobin 8.4 g/dL (13.5-17.5); Mean Corpuscular HGB 31.9 pg (26.0-34.0); Mean Corpuscular HGB Conc 34.4 g/dL (31.5-36.5); Mean Corpuscular Volume 93 fL (80-100); Mean Platelet Volume 10.3 fL (9.1-12.4); Platelet Count 231 K/mm3 (150-400); RDW Coefficient Variation 16.6 % (11.7-14.2); RDW Standard Deviation 56.7 fL (35.1-46.3); Red Blood Cell Count 2.63 M/mm3 (4.30-5.90); White Blood Cell Count 10.11 K/mm3 (4.00-11.30)
[2022-04-02 07:04] LABS: Albumin, Blood 1.9 g/dL (3.4-5.0); Albumin/Globulin Ratio 0.6 (0.8-1.8); Bilirubin, Direct 0.1 mg/dL (0.0-0.3); Bilirubin, Indirect 0.3 mg/dL (0.1-0.7); Bilirubin, Total 0.4 mg/dL (0.1-1.0); Bun/Creatinine Ratio 28.4 (12.0-20.0); Calcium, Blood 7.8 mg/dL (8.5-10.1); Creatinine, Blood 0.92 mg/dL (0.60-1.20); Globulin, Blood 3.2 g/dL (2.2-4.0); Phosphorus, Blood 2.7 mg/dL (2.5-4.9); Potassium, Blood 3.6 mmol/L (3.5-5.5); Total Protein, Blood 5.1 g/dL (6.4-8.2)
[2022-04-02 07:30] LABS: BAND PERCENT MAN 5 % (0-8); BASOPHILS PERCENT MAN 0 % (0-2); EOSINOPHILS PERCENT MAN 2 % (0-6); LYMPHOCYTES ABSOLUTE MAN 1.31 K/mm3 (0.84-5.20); LYMPHOCYTES PERCENT MAN 13 % (21-46); METAMYELOCYTE PERCENT MAN 5 % (0-0); MONOCYTES PERCENT MAN 2 % (4-13); MYELOCYTE PERCENT MAN 3 % (0-0); NEUTROPHILS ABSOLUTE MAN 7.58 K/mm3 (1.96-9.15); SEG NEUTROPHILS PERCENT MAN 70 % (41-73); TOTAL CELLS COUNTED 100
[2022-04-02] MEDS ORDERED: ACET325 PO (11:52)
[2022-04-02] MEDS ORDERED: FOLI1 PO (11:53)
[2022-04-02] MEDS ORDERED: Amiodarone HCl200 MG PO (11:53)
[2022-04-02] MEDS ORDERED: PANT40 PO (11:54)
[2022-04-02] MEDS ORDERED: Deltasone 10 mg10 MG PO (11:54)
[2022-04-02] MEDS ORDERED: B-1100 M1 PO (11:55)
[2022-04-02] MEDS ORDERED: CEFD300 PO (11:56)
[2022-04-02] MEDS ORDERED: VISBIOME 112.51 EACH PO (11:56)
--- NOTE | 2022-04-02 12:36 | NUR ---
DISCHARGE SUMMARY S/P PNEUMONIA c GI BLEED WHICH HAS RESOLVED, LUNGS REMAIN COARSE c FAINT EXPIRATORY WHEEZE NEED THE END OF EXHALATION. PT DISCHARGED HOME c HOME HEALTH, DISCUSSED DISCHARGE INFORMATION WITH THE PT AND HIS DAUGHTER WHO IS TAKING HIM HOME AND ASSISTING WITH CARE UNTIL SHE GOES HOME IN 1 WEEK. HOME PT/OT ORDERED WELL. MEDICATIONS SENT TO MD FOR PICKUP. DISCUSSED DISCHARGE INFORMATION WITH PT INCLUDING HOME HEALTH/PT/OT SERVICES, FOLLOW UP [facility], AND CHANGES TO ORDERED MEDICATIONS. PICC LINE REMOVED WITH CATHETER TIP SHOWING 48 CM WHICH IS ALSO WHAT WAS CHARTED ON THE INSERTION, PT TOLERATED PICC REMOVAL WELL. BOTH PT AND DAUGHTER HAVE NO QUESTIONS AT THIS TIME. PT ESCORTED OUT VIA WC TO PRIVATE AUTO TO GO HOME.
== END 2022-04-02 12:36 | disposition home health service (06) | DRG 871 ==
LOC: ER 22:38 → ICUW 03-26 01:36 → ICUE 03-26 01:36 → PCU 03-26 01:36 → ICUE 03-26 02:30 → PCU 03-31 18:20
PROVIDERS: Emergency Medicine; Family Medicine; Internal Medicine; Internal Medicine Cardiovascular Disease; Internal Medicine Critical Care Medicine; Internal Medicine Gastroenterology; Student in an Organized Health Care Education/Training Program; ADMIT Internal Medicine
PROC: 3E033XZ Introduction of Vasopressor into Peripheral Vein, Percutaneous Approach (ICD-10-PCS; 2022-03-26)
PROC: 5A2204Z Restoration of Cardiac Rhythm, Single (ICD-10-PCS; 2022-03-26)
PROC: 30233N1 Transfusion of Nonautologous Red Blood Cells into Peripheral Vein, Percutaneous Approach (ICD-10-PCS; 2022-03-26)
PROC: 5A09357 Assistance with Respiratory Ventilation, Less than 24 Consecutive Hours, Continuous Positive Airway Pressure (ICD-10-PCS; 2022-03-26)
PROC: 3E03329 Introduction of Other Anti-infective into Peripheral Vein, Percutaneous Approach (ICD-10-PCS; 2022-03-26)
PROC: 0DB78ZX Excision of Stomach, Pylorus, Via Natural or Artificial Opening Endoscopic, Diagnostic (ICD-10-PCS; principal; 2022-03-27 17:00)
PROC: 0DBK8ZX Excision of Ascending Colon, Via Natural or Artificial Opening Endoscopic, Diagnostic (ICD-10-PCS; 2022-03-28)
PROC: 0DBL8ZX Excision of Transverse Colon, Via Natural or Artificial Opening Endoscopic, Diagnostic (ICD-10-PCS; 2022-03-28)
PROC: 0DBN8ZX Excision of Sigmoid Colon, Via Natural or Artificial Opening Endoscopic, Diagnostic (ICD-10-PCS; 2022-03-28)
PROC: 0DBM8ZX Excision of Descending Colon, Via Natural or Artificial Opening Endoscopic, Diagnostic (ICD-10-PCS; 2022-03-28)
PROC: 0DBH8ZX Excision of Cecum, Via Natural or Artificial Opening Endoscopic, Diagnostic (ICD-10-PCS; 2022-03-28)
PROC: 02HV33Z Insertion of Infusion Device into Superior Vena Cava, Percutaneous Approach (ICD-10-PCS; 2022-03-28)
PROC: 0BH17EZ Insertion of Endotracheal Airway into Trachea, Via Natural or Artificial Opening (ICD-10-PCS; 2022-03-28)
PROC: 5A1935Z Respiratory Ventilation, Less than 24 Consecutive Hours (ICD-10-PCS; 2022-03-28)
DX: A41.9 Sepsis, unspecified organism (principal); G92.8 Other toxic encephalopathy; J18.9 Pneumonia, unspecified organism; J96.01 Acute respiratory failure with hypoxia; R65.21 Severe sepsis with septic shock; R57.8 Other shock; K57.31 Diverticulosis of large intestine without perforation or abscess with bleeding; N17.0 Acute kidney failure with tubular necrosis; E87.1 Hypo-osmolality and hyponatremia; I48.92 Unspecified atrial flutter; K22.10 Ulcer of esophagus without bleeding; D62 Acute posthemorrhagic anemia; F10.239 Alcohol dependence with withdrawal, unspecified; J44.0 Chronic obstructive pulmonary disease with (acute) lower respiratory infection; I48.91 Unspecified atrial fibrillation; E87.6 Hypokalemia; F17.210 Nicotine dependence, cigarettes, uncomplicated; K25.9 Gastric ulcer, unspecified as acute or chronic, without hemorrhage or perforation; K26.9 Duodenal ulcer, unspecified as acute or chronic, without hemorrhage or perforation; B96.89 Other specified bacterial agents as the cause of diseases classified elsewhere; K64.8 Other hemorrhoids; K63.5 Polyp of colon; I12.9 Hypertensive chronic kidney disease with stage 1 through stage 4 chronic kidney disease, or unspecified chronic kidney disease; N18.9 Chronic kidney disease, unspecified; E83.39 Other disorders of phosphorus metabolism; N40.0 Benign prostatic hyperplasia without lower urinary tract symptoms; S09.90XA Unspecified injury of head, initial encounter; W06.XXXA Fall from bed, initial encounter; R94.5 Abnormal results of liver function studies; D63.1 Anemia in chronic kidney disease; E88.09 Other disorders of plasma-protein metabolism, not elsewhere classified; E78.00 Pure hypercholesterolemia, unspecified; Z20.822 Contact with and (suspected) exposure to COVID-19; Z79.51 Long term (current) use of inhaled steroids; Z79.899 Other long term (current) drug therapy; Z79.2 Long term (current) use of antibiotics
CPT/HCPCS: 0241U; 31500; 36415; 36430; 36569; 51702; 71045; 74174; 80048; 80053; 80069; 80202; 81001; 82248; 82570; 82607; 82728; 82746; 82803; 82947; 83540; 83550; 83605; 83690; 83735; 83880; 83930; 83935; 84100; 84145; 84156; 84300; 84484; 85014; 85018; 85025; 85610; 85730; 86850; 86900; 86901; 86923; 87040; 87070; 87086; 87205; 88305; 88342; 92610; 92960; 93005; 93010; 93306; 94002; 94003; 94640; 94660; 94664; 94760; 94762; 96365; 96366; 96367; 96375; 97110; 97116; 97162; 97165; 97168; 97530; 97535; 99285-25; A9270; C1751; C9113; J0171; J0282; J0456; J0696; J1430; J1644; J1650; J1940; J2060; J2250; J2370; J2704; J2930; J3010; J3370; J3475; J3480; J7030; J7040; J7050; J7060; J7120; J7512; P9016; Q9967

== ENCOUNTER 2022-04-15 11:37 | Emergency (ER) | payer MEDICARE ==
[~2022-04-15 11:37] MED LIST: ACET325 PO; Amiodarone HCl200 MG PO; B-1100 M1 PO; BUPROPION HCL100 MG PO; CEFD300 PO; Deltasone 10 mg10 MG PO; FINA5 PO; FOLI1 PO; Hytrin2 MG PO; LISI20 PO; PANT40 PO; POLY500 PO; VISBIOME 112.51 EACH PO
[2022-04-15] MEDS ORDERED: Vancocin HCl125 MG PO (17:18)
== END 2022-04-15 17:24 | disposition home or self-care (01) ==
DX: R19.7 Diarrhea, unspecified (principal); Z79.899 Other long term (current) drug therapy; Z79.52 Long term (current) use of systemic steroids; Z87.891 Personal history of nicotine dependence